=== PATIENT | female | born 1975 | race African-American/Black ===

== ENCOUNTER 2023-08-11 22:06 | Emergency (ER) | payer MEDICAID, OTHER ==
[~2023-08-11] VITALS: Ht 162.6 cm; Wt 86.0 kg
[~2023-08-11 22:06] MED LIST: IBUP-1008 PO; QUET200T PO; SERT100T PO
[2023-08-11 22:15] VITALS: BP 132/82; PULSE 84; RESP 18; TEMP 98.2; O2SAT 96
[2023-08-11] MEDS ORDERED: TETRACAINE 0.5% OPHTH DROPS 4ML BOTHEYE ONE (22:45)
[2023-08-11] MEDS ORDERED: IBUPROFEN 800MG TABLET PO ONE (22:45)
[2023-08-11] MEDS ORDERED: FLUORESCEIN SODIUM 1MG/STRIP BOTHEYE ONE (22:45)
[2023-08-11] MEDS ORDERED: IBUPROFEN 400MG TABLET PO NR (23:00)
[2023-08-11] MEDS ORDERED: AMOXICILLIN/POTASSIUM CLAVULANATE 875/125MG TAB PO ONE (23:30)
[2023-08-12] MEDS ORDERED: VIGAMX RIGHTEYE (00:46)
[2023-08-12] MEDS ORDERED: CIPR-263 MT (00:48)
[2023-08-12] MEDS ORDERED: LEVOFLOXACIN 250MG TABLET PO ONE (01:00)
[2023-08-12] MEDS ORDERED: CIPROFLOXACIN 0.3% OPHTH SOLN 2.5ML RIGHTEYE ONE (01:00)
== END 2023-08-12 01:15 | disposition home or self-care (01) ==
LOC: ER 22:06
DX: H16.001 Unspecified corneal ulcer, right eye (principal); E11.9 Type 2 diabetes mellitus without complications
CPT/HCPCS: 99284